=== PATIENT | female | born 1980 | race Two or more races ===

== ENCOUNTER 2016-07-22 09:47 | Emergency (ER) | payer OTHER, MEDICAID ==
[~2016-07-22] VITALS: Ht 180.3 cm; Wt 117.5 kg
[~2016-07-22 09:47] MED LIST: PREN-129 OR
[2016-07-22 14:44] VITALS: BP 123/65
== END 2016-07-22 17:14 | disposition home or self-care (01) ==
LOC: ER 09:47
DX: M54.6 Pain in thoracic spine (principal); M62.838 Other muscle spasm
CPT/HCPCS: 71020; 72128; 81025